=== PATIENT | male | born 2000 | race Caucasian/White ===

== ENCOUNTER 2025-06-09 03:03 | Emergency (ER) | payer SELFPAY ==
[~2025-06-09] VITALS: Ht 175.3 cm; Wt 79.4 kg
[2025-06-09] MEDS ORDERED: Ondansetron Hydrochloride 4 MG TAB SL ONE (03:40)
[2025-06-09 03:54] LABS: BILIRUBIN Negative (Negative); BLOOD Negative (Negative); CLARITY Clear (Clear); COLOR Yellow (Yellow); KETONE Negative (Negative); LEUKO ESTERASE Negative (Negative); NITRITE Negative (Negative); PH 6.5 (4.5-8.0); SPECIFIC GRAVITY 1.020 (1.001-1.030); UROBILINOGEN 1.0 E.U./dl (0.0-1.0)
[2025-06-09 04:00] LABS: BASO # 0.0 10*3/uL (0.0-0.1); BASO % 0.4 % (0.0-1.0); EOS # 0.0 10*3/uL (0.0-0.4); EOS % 0.0 % (1.0-4.0); MEAN CELL VOLUME 88.8 fl (80.0-94.0); MEAN CORPUSCULAR HGB 30.6 pg (27.0-31.0); MEAN PLATELET VOLUME 10.3 fl (9.6-12.3); MONO # 0.5 10*3/uL (0.1-1.0); MONO % 8.9 % (3.0-9.0); NEUT # 3.0 10*3/uL (2.3-7.9); NEUT % 55.9 % (47.0-73.0); NUCLEATED RED BLOOD CELL 0.0 % (0.0-0.0); NUCLEATED RED BLOOD CELL 0.0 10*3/uL (0.0-0.0); PLATELET COUNT AUTOMATED 269 10*3/uL (130-400); RED CELL DISTRI WIDTH 12.5 % (0-14.5)
[2025-06-09 04:16] LABS: WBC 0-2 wbc/hpf (0-5)
[2025-06-09 04:22] LABS: BUN 8 mg/dl (9-23); SGPT/ALT 24 U/L (5-49)
== END 2025-06-09 04:56 | disposition home or self-care (01) ==
LOC: ED 03:03
PROVIDERS: Emergency Medicine
DX: R11.10 Vomiting, unspecified (principal); R10.11 Right upper quadrant pain